=== PATIENT | female | born 1975 | race Caucasian/White ===

== ENCOUNTER 2018-05-18 06:21 | Day surgery (SDC) | END 2018-05-18 11:00 | disposition home or self-care (01) ==

== ENCOUNTER 2018-12-27 16:42 | Inpatient (IN) | payer OTHER ==
[~2018-12-27] VITALS: Ht 147.3 cm; Wt 59.0 kg
[2018-12-27 17:12] VITALS: BP 127/59; PULSE 82; RESP 18
[2018-12-27 17:14] VITALS: Ht 147.3 cm; Wt 59.0 kg
[2018-12-27] MEDS ORDERED: NACL 0.9% 3 ML SYG IV SCH (17:30)
[2018-12-27] MEDS ORDERED: ACETAMINOPHEN 325 MG TAB PO PRN (17:30)
[2018-12-27] MEDS ORDERED: morphine 2 MG INJ IV PRN (17:30)
[2018-12-27] MEDS ORDERED: HYDROCODONE/APAP (5/325) TAB PO PRN (17:30)
[2018-12-27] MEDS ORDERED: ONDANSETRON 4 MG INJ IV PRN (17:30)
[2018-12-27] MEDS: SOD CHLORIDE 0.9% 1,000 ML IV SCH (18:08)
--- NOTE | 2018-12-27 18:46 | HP ---
Date/Time of Note Date/Time of Note DATE: 12/27/18 TIME: 18:46 Assessment/Plan VTE Prophylaxis Pharmacological prophylaxis: other Assessment/Plan Hospital Course Patient is a female with no significant past medical history who presents to [facility] as a transfer from outside facility. Patient went to outside facility ED after experiencing what she thought was hemorrhoidal bleeding this morning. Patient states that for the past 7 months she has been spent experiencing on and off rectal bleeding that came and went and was sometimes a little bit and sometimes a lot. Patient states that she went to the ED today as she began to notice that she has been losing weight over the past few months approximately 30 pounds in the past 6 months, and that the bleeding was fairly heavy this morning, approximately a quarter of a cup that has since ceased. Currently patient has no complaint of rectal bleeding. Patient states that she has very mild pain in the right lower quadrant other than that the only real pain she experiences is when she tries to defecate. Patient denies any chest pain, shortness of breath, nausea, vomiting, headache, neck pain, leg pain. Objective Physical exam General: Patient is laying in bed and answers questions appropriately Mentation: Patient is alert and oriented 4, Head: Normocephalic atraumatic Eyes: EOMI, pupils reactive to light Neck: Supple, nontender, midline Respiratory: Clear to auscultation bilaterally Cardiovascular: regular rate, no obvious murmurs Gastrointestinal: Very mild right lower quadrant tenderness to palpation, bowel sounds heard. Neurological: Moves all extremities spontaneously Skin: No new skin lesions Assessment and plan Mass involving the rectum extending from the lower rectum inferiorly to the rectosigmoid junction with mesorectal, inferior mesenteric artery chain, and necrotic internal iliac chain lymphadenopathy -Per CT read at transferring facility this is most concerning for rectal neoplasm with metastatic lymphadenopathy -Patient also on CT has enhancing lesions and masses throughout the liver which is also concerning for metastatic disease -No CT done of the chest however do not want to give the patient a double dose of contrast today, will order CT chest with contrast tomorrow or the day after or per oncology recognitions -Oncologist, Dr. Hernandez consulted Rectal bleed -Secondary to above mass and likely metastatic cancer -GI on board -Currently not bleeding however patient did have a mild drop from the transferring facility, will obtain hemoglobin hematocrit every 6 hours and transfuse if below 7.5 as this is categorized as active bleed, although very mild -IV fluid -Clears for now Acute blood loss anemia -Secondary to above rectal bleed and likely mass -Transfuse if below 7.5 for active bleed 30 pound weight loss -Likely secondary to above mass, oncology recommendations appreciated Disposition -Continue to monitor hemoglobin hematocrit every 6 hours, transfuse as needed, awaiting recommendations from GI and oncology. Result Diagram: 12/27/18 1757 12/27/18 1757 Results 24hrs Laboratory Tests Test 12/27/18 17:57 White Blood Count 8.0 Red Blood Count 3.88 L Hemoglobin 8.3 L Hematocrit 27.6 L Mean Corpuscular Volume 71.1 L Mean Corpuscular Hemoglobin 21.4 L Mean Corpuscular Hemoglobin Concent 30.1 L Red Cell Distribution Width 19.8 H Platelet Count 449 H Mean Platelet Volume 8.8 Immature Granulocytes % 0.400 Neutrophils % 72.3 Lymphocytes % 20.8 Monocytes % 5.2 Eosinophils % 0.9 Basophils % 0.4 Nucleated Red Blood Cells % 0.0 Immature Granulocytes # 0.030 Neutrophils # 5.8 Lymphocytes # 1.7 Monocytes # 0.4 Eosinophils # 0.1 Basophils # 0.0 Nucleated Red Blood Cells # 0.0 Sodium Level 140 Potassium Level 4.1 Chloride Level 109 Carbon Dioxide Level 22 Anion Gap 9 Blood Urea Nitrogen 6 L Creatinine 0.50 Est Glomerular Filtrat Rate mL/min > 60 Glucose Level 80 Calcium Level 8.8 Magnesium Level 1.9 Total Bilirubin 0.6 Direct Bilirubin 0.00 Indirect Bilirubin 0.6 Aspartate Amino Transf (AST/SGOT) 64 H Alanine Aminotransferase (ALT/SGPT) 38 Alkaline Phosphatase 347 H Total Protein 6.7 Albumin 3.6 Globulin 3.10 Albumin/Globulin Ratio 1.16 HPI/ROS Admit Date/Time Admit Date/Time Dec 27, 2018 at 16:42 PMH/Family/Social Past Medical History Medications Current Medications Sodium Chloride 1,000 ml @ 50 mls/hr Q20H IV Last administered on 12/27/18at 18:08; Admin Dose 50 MLS/HR; Start 12/27/18 at 17:26 IV Flush (NS 3 ml) 3 ml PER PROTOCOL IV ; Start 12/27/18 at 17:30 Ondansetron HCl (Zofran Inj) 4 mg Q6H PRN IV NAUSEA/VOMITING; Start 12/27/18 at 17:30 Acetaminophen (Tylenol Tab) 650 mg Q6H PRN PO .PAIN 1-3 OR TEMP; Start 12/27/18 at 17:30 Acetaminophen/ Hydrocodone Bitart ([place] (5/325)) 1 tab Q6H PRN PO .PAIN 4-6; Start 12/27/18 at 17:30 Morphine Sulfate (morphine) 2 mg Q4H PRN IV .PAIN 7-10; Start 12/27/18 at 17:30 Pantoprazole (Protonix Iv) 40 mg DAILY@06 IV ; Start 12/28/18 at 06:00 Coded Allergies: No Known Allergy (Unverified , 05/18/18) Social History Smoking Status: Never smoker Exam/Review of Systems Vital Signs Vitals Vital Signs Date Temp Pulse Resp B/P (MAP) Pulse Ox O2 O2 Flow FiO2 Time Delivery Rate 12/27/18 98.1 82 18 127/59 100 Room Air 17:12 (81) ALIVIA MARIANO Dec 27, 2018 18:46
[2018-12-27 19:55] VITALS: BP 122/61; PULSE 90; RESP 18
[2018-12-27 20:14] VITALS: PULSE 89
[2018-12-28] VITALS (12 sets, daily range): BP systolic 111–133; BP diastolic 55–61; PULSE 71–82; RESP 16–18
[2018-12-28] MEDS: PANTOPRAZOLE 40 MG INJ IV SCH (06:09)
--- NOTE | 2018-12-28 12:16 | CONS ---
Assessment/Plan Assessment/Plan Hospital Course (Demo Recall) Summary Assessment and Plan: Assessment: Rectal bleeding Unintentional weight loss-30 pounds over the past [address] rectal mass concerning for neoplasm with hepatic lesions concerning for metastatic disease and lymphadenopathy Plan: sigmoidoscopy today Endoscopy - risks/benefits/alternatives/indications of procedure discussed with patient who states understanding and gives informed consent to proceed. Patient seen in collaboration with Dr. Johnson CC: RODRIGO JOHNSON MD ; Consultation Date/Type/Reason Admit Date/Time Dec 27, 2018 at 16:42 Date/Time of Note DATE: 12/28/18 TIME: 12:12 Hx of Present Illness This is a 43-year-old female with no significant past medical history who resented to [facility] with complaints of lower abdominal pain and rectal bleeding. Patient states this is been going off and on for the past 7 months no further work-up was completed as she thought this was secondary to hemorrhoids. Of note she did states she had unintentional weight loss about 30 pounds in the past 6 months. At that hospital CAT scan was obtained showing mass in the rectum extending to the rectum and sigmoid junction concern for prostatic lymphadenopathy and enhancing lesions/masses throughout the liver also concerning for metastatic disease. GI has been consulted for endoscopic evaluation. Discussed with patient plan for sigmoidoscopy to obtain tissue sample for confirmative diagnosis. Reviewed risk/benefits of procedure patient verbalized understanding and is agreeable. Review of Systems: A 12 system, review was conducted and is negative except as noted in the HPI or here. Past Medical History Home Meds No Active Prescriptions or Reported Meds Medications Current Medications Sodium Chloride 1,000 ml @ 50 mls/hr Q20H IV Last administered on 12/27/18at 18:08; Admin Dose 50 MLS/HR; Start 12/27/18 at 17:26 IV Flush (NS 3 ml) 3 ml PER PROTOCOL IV ; Start 12/27/18 at 17:30 Ondansetron HCl (Zofran Inj) 4 mg Q6H PRN IV NAUSEA/VOMITING; Start 12/27/18 at 17:30 Acetaminophen (Tylenol Tab) 650 mg Q6H PRN PO .PAIN 1-3 OR TEMP; Start 12/27/18 at 17:30 Acetaminophen/ Hydrocodone Bitart ([place] (5/325)) 1 tab Q6H PRN PO .PAIN 4-6; Start 12/27/18 at 17:30 Morphine Sulfate (morphine) 2 mg Q4H PRN IV .PAIN 7-10; Start 12/27/18 at 17:30 Pantoprazole (Protonix Iv) 40 mg DAILY@06 IV Last administered on 12/28/18at 06:09; Admin Dose 40 MG; Start 12/28/18 at 06:00 Allergies: Coded Allergies: No Known Allergy (Unverified , 05/18/18) Social History Smoking Status: Never smoker Exam/Review of Systems Exam Vitals Vital Signs Date Temp Pulse Resp B/P (MAP) Pulse Ox O2 O2 Flow FiO2 Time Delivery Rate 12/28/18 98.7 79 17 120/58 98 Room Air 11:16 (78) Intake and Output 12/27/18 12/27/18 12/28/18 1414:59 22:59 06:59 IntakeIntake Total 650 ml BalanceBalance 650 ml Exam PHYSICAL EXAMINATION: GENERAL: Well developed, well nourished, alert & oriented x 3, in no acute distress SKIN: No lesions. HEAD: Normocephalic, atraumatic, no tenderness. EYES: Pupils equal reactive to light and accommodation, no discharge. EARS/NOSE AND THROAT: Ears normal, nose normal, oropharynx normal. NECK: Supple, no masses. CHEST: Inspection within normal limits. CARDIOVASCULAR: Heart: Regular rate and rhythm RESPIRATORY: Lungs clear to auscultation GASTROINTESTINAL AND LIVER: Abdomen: Soft, lower abd tenderness, non-distended, no hernias, no masses, no organomegaly, no ascites, no guarding, no rebound tenderness, normoactive bowel sounds. Rectal: Deferred. EXTREMITIES: No cyanosis, clubbing or edema. Results Result Diagram: 12/28/18 1149 12/28/18 0706 Results 24hrs Laboratory Tests Test 12/27/18 17:57 12/28/18 00:22 12/28/18 07:06 12/28/18 11:49 White Blood Count 8.0 7.4 Red Blood Count 3.88 L 4.36 Hemoglobin 8.3 L 7.4 L 9.5 #L 9.0 L Hematocrit 27.6 L 24.9 L 31.7 #L 29.6 L Mean Corpuscular Volume 71.1 L 72.7 L Mean Corpuscular 21.4 L 21.8 L Hemoglobin Mean Corpuscular 30.1 L 30.0 L Hemoglobin Concent Red Cell Distribution 19.8 H 20.7 H Width Platelet Count 449 H 410 Mean Platelet Volume 8.8 8.9 Immature Granulocytes % 0.400 0.400 Neutrophils % 72.3 69.0 Lymphocytes % 20.8 22.1 Monocytes % 5.2 5.7 Eosinophils % 0.9 2.4 Basophils % 0.4 0.4 Nucleated Red Blood 0.0 0.0 Cells % Immature Granulocytes # 0.030 0.030 Neutrophils # 5.8 5.1 Lymphocytes # 1.7 1.6 Monocytes # 0.4 0.4 Eosinophils # 0.1 0.2 Basophils # 0.0 0.0 Nucleated Red Blood 0.0 0.0 Cells # Sodium Level 140 140 Potassium Level 4.1 3.9 Chloride Level 109 109 Carbon Dioxide Level 22 24 Anion Gap 9 7 Blood Urea Nitrogen 6 L 8 Creatinine 0.50 0.52 Est Glomerular Filtrat > 60 > 60 Rate mL/min Glucose Level 80 81 Calcium Level 8.8 8.7 Magnesium Level 1.9 1.9 Total Bilirubin 0.6 0.8 Direct Bilirubin 0.00 0.00 Indirect Bilirubin 0.6 0.8 Aspartate Amino 64 H 67 H Transf (AST/SGOT) Alanine 38 30 Aminotransferase (ALT/SG PT) Alkaline Phosphatase 347 H 302 H Total Protein 6.7 6.7 Albumin 3.6 3.3 Globulin 3.10 3.40 H Albumin/Globulin Ratio 1.16 0.97 Prothrombin Time 13.9 Prothrombin Time Ratio 1.1 INR International 1.06 Normalized Ratio Activated 30.9 Partial Thromboplast Time Thrombin Time 16.4 Hemoglobin A1c 5.6 Triglycerides Level 101 Cholesterol Level 193 LDL Cholesterol, 127 Calculated HDL Cholesterol 46 Cholesterol/HDL Ratio 4.1 Thyroid Stimulating 2.870 Hormone (TSH) Medications Medication Current Medications Sodium Chloride 1,000 ml @ 50 mls/hr Q20H IV Last administered on 12/27/18at 18:08; Admin Dose 50 MLS/HR; Start 12/27/18 at 17:26 IV Flush (NS 3 ml) 3 ml PER PROTOCOL IV ; Start 12/27/18 at 17:30 Ondansetron HCl (Zofran Inj) 4 mg Q6H PRN IV NAUSEA/VOMITING; Start 12/27/18 at 17:30 Acetaminophen (Tylenol Tab) 650 mg Q6H PRN PO .PAIN 1-3 OR TEMP; Start 12/27/18 at 17:30 Acetaminophen/ Hydrocodone Bitart ([place] (5/325)) 1 tab Q6H PRN PO .PAIN 4-6; Start 12/27/18 at 17:30 Morphine Sulfate (morphine) 2 mg Q4H PRN IV .PAIN 7-10; Start 12/27/18 at 17:30 Pantoprazole (Protonix Iv) 40 mg DAILY@06 IV Last administered on 12/28/18at 06:09; Admin Dose 40 MG; Start 12/28/18 at 06:00 LAURIE CANADA Dec 28, 2018 12:16
[2018-12-28] MEDS ORDERED: MIDAZOLAM 1 MG/ML 2 ML INJ ONE ×2 (13:05→13:06)
[2018-12-28] MEDS ORDERED: FENTAnyl 50 MCG/ML VIAL ONE (13:05)
[2018-12-28] MEDS: SOD CHLORIDE 0.9% 1,000 ML IV SCH ×2 (13:26→20:35)
--- NOTE | 2018-12-28 14:30 | PN ---
Date/Time of Note Date/Time of Note DATE: 12/28/18 TIME: 14:28 Objective Vitals Vital Signs Date Temp Pulse Resp B/P (MAP) Pulse Ox O2 O2 Flow FiO2 Time Delivery Rate 12/28/18 75 12:00 12/28/18 98.7 17 120/58 98 Room Air 11:16 (78) Intake and Output 12/27/18 12/27/18 12/28/18 1515:00 23:00 07:00 IntakeIntake Total 650 ml BalanceBalance 650 ml Results Result Diagram: 12/28/18 1149 12/28/18 0706 Medications Medications Current Medications Sodium Chloride 1,000 ml @ 50 mls/hr Q20H IV Last administered on 12/27/18at 18:08; Admin Dose 50 MLS/HR; Start 12/27/18 at 17:26 IV Flush (NS 3 ml) 3 ml PER PROTOCOL IV ; Start 12/27/18 at 17:30 Ondansetron HCl (Zofran Inj) 4 mg Q6H PRN IV NAUSEA/VOMITING; Start 12/27/18 at 17:30 Acetaminophen (Tylenol Tab) 650 mg Q6H PRN PO .PAIN 1-3 OR TEMP; Start 12/27/18 at 17:30 Acetaminophen/ Hydrocodone Bitart ([place] (5/325)) 1 tab Q6H PRN PO .PAIN 4-6; Start 12/27/18 at 17:30 Morphine Sulfate (morphine) 2 mg Q4H PRN IV .PAIN 7-10; Start 12/27/18 at 17:30 Pantoprazole (Protonix Iv) 40 mg DAILY@06 IV Last administered on 12/28/18at 06:09; Admin Dose 40 MG; Start 12/28/18 at 06:00 VTE Prophylaxis Risk score (from Nsg)>0 risk: 3 SCD applied (from Nsg): Yes Lines/Catheters IV Catheter Type: Mi in Place: No Assessment/Plan Hospital Course Subjective No acute overnight events, patient not having rectal bleed however hemoglobin did drop, transfuse 1 unit Objective Physical exam General: Patient is laying in bed and answers questions appropriately Mentation: Patient is alert and oriented 4, Head: Normocephalic atraumatic Eyes: EOMI, pupils reactive to light Neck: Supple, nontender, midline Respiratory: Clear to auscultation bilaterally Cardiovascular: regular rate, no obvious murmurs Gastrointestinal: Very mild right lower quadrant tenderness to palpation, bowel sounds heard. Neurological: Moves all extremities spontaneously Skin: No new skin lesions Assessment and plan Mass involving the rectum extending from the lower rectum inferiorly to the rectosigmoid junction with mesorectal, inferior mesenteric artery chain, and necrotic internal iliac chain lymphadenopathy -Per CT read at transferring facility this is most concerning for rectal neoplasm with metastatic lymphadenopathy -Patient also on CT has enhancing lesions and masses throughout the liver which is also concerning for metastatic disease -No CT done of the chest however do not want to give the patient a double dose of contrast today, will order CT chest with contrast tomorrow or the day after or per oncology recognitions -Oncologist, Dr. Hernandez consulted -GI performed sigmoidoscopy and obtain biopsy, pending biopsy results -Awaiting callback from radiation oncologist, Dr. Arnold Rectal bleed -Secondary to above mass and likely metastatic cancer -GI on board -Currently not bleeding however patient did have a mild drop from the transferring facility, will obtain hemoglobin hematocrit every 6 hours and transfuse if below 7.5 as this is categorized as active bleed, although very mild -IV fluid -Clears for now Acute blood loss anemia -Secondary to above rectal bleed and likely mass -Transfuse if below 7.5 for active bleed 30 pound weight loss -Likely secondary to above mass, oncology recommendations appreciated Disposition -Continue to monitor hemoglobin hematocrit every 6 hours, transfuse as needed, awaiting recommendations from GI and oncology. Awaiting callback from radiation oncologist, awaiting path reports, possibly needing radiation before discharge if bleeding does not subside. ALIVIA MARIANO Dec 28, 2018 14:30
[2018-12-29] VITALS (13 sets, daily range): BP systolic 105–136; BP diastolic 58–66; PULSE 65–86; RESP 16–18
[2018-12-29] MEDS: PANTOPRAZOLE 40 MG INJ IV SCH (06:07)
--- NOTE | 2018-12-29 13:29 | PN ---
Date/Time of Note Date/Time of Note DATE: 12/29/18 TIME: 13:26 Objective Vitals Vital Signs Date Temp Pulse Resp B/P (MAP) Pulse Ox O2 O2 Flow FiO2 Time Delivery Rate 12/29/18 84 13:09 12/29/18 97.5 18 136/59 98 Room Air 11:40 (84) Intake and Output 12/28/18 12/28/18 12/29/18 1515:00 23:00 07:00 IntakeIntake Total 500 ml 1600 ml 480 ml BalanceBalance 500 ml 1600 ml 480 ml Results Result Diagram: 12/29/18 1210 12/29/18 0805 Medications Medications Current Medications IV Flush (NS 3 ml) 3 ml PER PROTOCOL IV ; Start 12/27/18 at 17:30 Ondansetron HCl (Zofran Inj) 4 mg Q6H PRN IV NAUSEA/VOMITING; Start 12/27/18 at 17:30 Acetaminophen (Tylenol Tab) 650 mg Q6H PRN PO .PAIN 1-3 OR TEMP; Start 12/27/18 at 17:30 Acetaminophen/ Hydrocodone Bitart ([place] (5/325)) 1 tab Q6H PRN PO .PAIN 4-6; Start 12/27/18 at 17:30 Morphine Sulfate (morphine) 2 mg Q4H PRN IV .PAIN 7-10; Start 12/27/18 at 17:30 Pantoprazole (Protonix Iv) 40 mg DAILY@06 IV Last administered on 12/29/18at 06:07; Admin Dose 40 MG; Start 12/28/18 at 06:00 VTE Prophylaxis Risk score (from Nsg)>0 risk: 3 SCD applied (from Ns): Yes Lines/Catheters IV Catheter Type: Mi in Place: No Assessment/Plan Hospital Course Subjective No acute overnight events, Objective Physical exam General: Patient is laying in bed and answers questions appropriately Mentation: Patient is alert and oriented 4, Head: Normocephalic atraumatic Eyes: EOMI, pupils reactive to light Neck: Supple, nontender, midline Respiratory: Clear to auscultation bilaterally Cardiovascular: regular rate, no obvious murmurs Gastrointestinal: Very mild right lower quadrant tenderness to palpation, bowel sounds heard. Neurological: Moves all extremities spontaneously Skin: No new skin lesions Assessment and plan Mass involving the rectum extending from the lower rectum inferiorly to the rectosigmoid junction with mesorectal, inferior mesenteric artery chain, and necrotic internal iliac chain lymphadenopathy -Per CT read at transferring facility this is most concerning for rectal neoplasm with metastatic lymphadenopathy -Patient also on CT has enhancing lesions and masses throughout the liver which is also concerning for metastatic disease -awaiting both oncology/rad-oncology recs for further staging (MRI vs further ct scans) -Oncologist, Dr. Hernandez consulted -GI performed sigmoidoscopy and obtained biopsy, pending biopsy results -Dr. Arnold, rad onc on board. Rectal bleed -Secondary to above mass and likely metastatic cancer -GI on board -Currently not bleeding however patient did have a mild drop from the transferring facility, will obtain hemoglobin hematocrit every 6 hours and transfuse if below 7.5 as this is categorized as active bleed, although very mild -IV fluid -Clears for now increase as tolerated Acute blood loss anemia -Secondary to above rectal bleed and likely mass -Transfuse if below 7.5 for active bleed 30 pound weight loss -Likely secondary to above mass, oncology recommendations appreciated Disposition -Continue to monitor hemoglobin hematocrit every 6 hours, transfuse as needed, awaiting recommendations from GI and oncology. ALIVIA MARIANO Dec 29, 2018 13:29
--- NOTE | 2018-12-29 13:36 | CONS ---
Assessment/Plan Assessment/Plan Hospital Course (Demo Recall) pleasant but unfortunate 43 yo with no PMH with BRBPR and weight loss, had CT scan showing rectal lesion and liver mets. 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 given extent of disease will administer either FOLFOX or XELOX concomitantly -we discussed in brief the chemotherapy schedule and side effects expected uncluding but not limited to nausea, vomiting, myelosupression, hair loss, neuropathy. once pathology is finalized will order chemo -KRAS and MSI testing -would recommend mediport Consultation Date/Type/Reason Admit Date/Time Dec 27, 2018 at 16:42 Date/Time of Note DATE: 12/29/18 TIME: 13:35 Hx of Present Illness 43 yo female with no significant past medical history who presented to [facility] as a transfer from outside facility. She went to ER after having rectal bleeding. Has had on and off rectal bleeding small amounts to at times large amounts. Also has been losing weight over the past few months approximately 30 pounds in the past 6 months. She had colonoscopy yesterday showing large exophytic malignant appearing mass 1-2 cm from anal verge and extending 6-7 cm Eyes: no complaints ENT: no complaints Respiratory: no complaints Cardiovascular: no complaints Gastrointestinal: pain, blood, constipation, decreased appetite Genitourinary: no complaints Musculoskeletal: no complaints Skin: no complaints Neurologic: no complaints Endocrine: no complaints Lymphatic: no complaints Past Medical History Home Meds No Active Prescriptions or Reported Meds Medications Current Medications IV Flush (NS 3 ml) 3 ml PER PROTOCOL IV ; Start 12/27/18 at 17:30 Ondansetron HCl (Zofran Inj) 4 mg Q6H PRN IV NAUSEA/VOMITING; Start 12/27/18 at 17:30 Acetaminophen (Tylenol Tab) 650 mg Q6H PRN PO .PAIN 1-3 OR TEMP; Start 12/27/18 at 17:30 Acetaminophen/ Hydrocodone Bitart ([place] (5/325)) 1 tab Q6H PRN PO .PAIN 4-6; Start 12/27/18 at 17:30 Morphine Sulfate (morphine) 2 mg Q4H PRN IV .PAIN 7-10; Start 12/27/18 at 17:30 Pantoprazole (Protonix Iv) 40 mg DAILY@06 IV Last administered on 12/29/18at 06:07; Admin Dose 40 MG; Start 12/28/18 at 06:00 Allergies: Coded Allergies: No Known Allergy (Unverified , 05/18/18) Social History Smoking Status: Never smoker Exam/Review of Systems Exam Vitals Vital Signs Date Temp Pulse Resp B/P (MAP) Pulse Ox O2 O2 Flow FiO2 Time Delivery Rate 12/29/18 84 13:09 12/29/18 97.5 18 136/59 98 Room Air 11:40 (84) Intake and Output 12/28/18 12/28/18 12/29/18 1515:00 23:00 07:00 IntakeIntake Total 500 ml 1600 ml 480 ml BalanceBalance 500 ml 1600 ml 480 ml Constitutional: alert Psych: no complaints, nl mood/affect Head: normocephalic, atraumatic Eyes: nl conjunctiva, EOMI, nl lids, nl sclera, PERRL Neck: supple, non-tender Gastrointestinal: soft Neurological: [employer] II-XII intact, nl mental status, nl speech, nl strength Results Result Diagram: 12/29/18 1210 12/29/18 0805 Results 24hrs Laboratory Tests Test 12/28/18 18:54 12/29/18 00:40 12/29/18 08:05 12/29/18 12:10 Hemoglobin 8.8 L 8.9 L 10.1 L 9.7 L Hematocrit 28.8 L 28.7 L 33.2 L 31.7 L White Blood Count 8.2 Red Blood Count 4.57 Mean Corpuscular Volume 72.6 L Mean Corpuscular 22.1 L Hemoglobin Mean Corpuscular 30.4 L Hemoglobin Concent Red Cell Distribution 20.0 H Width Platelet Count 437 H Mean Platelet Volume 9.0 Immature Granulocytes % 0.100 Neutrophils % 67.7 Lymphocytes % 25.1 Monocytes % 4.5 Eosinophils % 2.2 Basophils % 0.4 Nucleated Red Blood 0.0 Cells % Immature Granulocytes # 0.010 Neutrophils # 5.6 Lymphocytes # 2.1 Monocytes # 0.4 Eosinophils # 0.2 Basophils # 0.0 Nucleated Red Blood 0.0 Cells # Sodium Level 139 Potassium Level 3.7 Chloride Level 106 Carbon Dioxide Level 27 Anion Gap 6 Blood Urea Nitrogen 6 L Creatinine 0.50 Est Glomerular Filtrat > 60 Rate mL/min Glucose Level 100 Calcium Level 8.9 Phosphorus Level 4.3 Magnesium Level 1.8 Medications Medication Current Medications IV Flush (NS 3 ml) 3 ml PER PROTOCOL IV ; Start 12/27/18 at 17:30 Ondansetron HCl (Zofran Inj) 4 mg Q6H PRN IV NAUSEA/VOMITING; Start 12/27/18 at 17:30 Acetaminophen (Tylenol Tab) 650 mg Q6H PRN PO .PAIN 1-3 OR TEMP; Start 12/27/18 at 17:30 Acetaminophen/ Hydrocodone Bitart ([place] (5/325)) 1 tab Q6H PRN PO .PAIN 4-6; Start 12/27/18 at 17:30 Morphine Sulfate (morphine) 2 mg Q4H PRN IV .PAIN 7-10; Start 12/27/18 at 17:30 Pantoprazole (Protonix Iv) 40 mg DAILY@06 IV Last administered on 12/29/18at 06:07; Admin Dose 40 MG; Start 12/28/18 at 06:00 KAMALJIT HOLLINS Dec 29, 2018 13:36
--- NOTE | 2018-12-29 15:14 | PN ---
Date/Time of Note Date/Time of Note DATE: 12/29/18 TIME: 14:56 Assessment/Plan VTE Prophylaxis Risk score (from Ns)>0 risk: 3 SCD applied (from Ns): Yes Pharmacological prophylaxis: NA/contraindicated Pharm contraindication: bleeding Lines/Catheters IV Catheter Type (from [facility]): Urinary Cath still in place: No Assessment/Plan Assessment/Plan Assessment: Rectal bleeding Status post sigmoidoscopy 12/28/2018 -Large rectal mass -biopsied -moderately differentiated adenocarcinoma Unintentional weight loss-30 pounds over the past [address] rectal mass concerning for neoplasm with hepatic lesions concerning for metastatic disease and lymphadenopathy Plan: Oncology consult for possible radiation Full colonoscopy is recommended in the future With no further recommendations GI will sign off Patient seen in collaboration with Dr. Johnson Subjective: Patient is feeling well today. She is complaining of suprapubic pain. Denies nausea or vomiting. She is tolerating regular diet well. Discussed results of sigmoidoscopy and biopsy. Recommend oncology consult. With no further recommendations GI will sign off and will be available to reconsult upon request. Exam PHYSICAL EXAMINATION: GENERAL: Well developed, well nourished, alert & oriented x 3, in no acute distress SKIN: No lesions. HEAD: Normocephalic, atraumatic, no tenderness. EYES: Pupils equal reactive to light and accommodation, no discharge. EARS/NOSE AND THROAT: Ears normal, nose normal, oropharynx normal. NECK: Supple, no masses. CHEST: Inspection within normal limits. CARDIOVASCULAR: Heart: Regular rate and rhythm RESPIRATORY: Lungs clear to auscultation GASTROINTESTINAL AND LIVER: Abdomen: Soft, lower abd tenderness, non-distended, no hernias, no masses, no organomegaly, no ascites, no guarding, no rebound tenderness, normoactive bowel sounds. Rectal: Deferred. EXTREMITIES: No cyanosis, clubbing or edema. Result Diagram: 12/29/18 1210 12/29/18 0805 Results 24hrs Laboratory Tests Test 12/28/18 18:54 12/29/18 00:40 12/29/18 08:03 12/29/18 08:05 Hemoglobin 8.8 L 8.9 L 10.1 L Hematocrit 28.8 L 28.7 L 33.2 L Iron Level 23 L Total Iron Binding 396 Capacity Percent Iron Saturation 6 L Ferritin 20.6 Carcinoembryonic Antigen 176.0 H White Blood Count 8.2 Red Blood Count 4.57 Mean Corpuscular Volume 72.6 L Mean Corpuscular 22.1 L Hemoglobin Mean Corpuscular 30.4 L Hemoglobin Concent Red Cell Distribution 20.0 H Width Platelet Count 437 H Mean Platelet Volume 9.0 Immature Granulocytes % 0.100 Neutrophils % 67.7 Lymphocytes % 25.1 Monocytes % 4.5 Eosinophils % 2.2 Basophils % 0.4 Nucleated Red Blood 0.0 Cells % Immature Granulocytes # 0.010 Neutrophils # 5.6 Lymphocytes # 2.1 Monocytes # 0.4 Eosinophils # 0.2 Basophils # 0.0 Nucleated Red Blood 0.0 Cells # Sodium Level 139 Potassium Level 3.7 Chloride Level 106 Carbon Dioxide Level 27 Anion Gap 6 Blood Urea Nitrogen 6 L Creatinine 0.50 Est Glomerular Filtrat > 60 Rate mL/min Glucose Level 100 Calcium Level 8.9 Phosphorus Level 4.3 Magnesium Level 1.8 Test 12/29/18 12:10 Hemoglobin 9.7 L Hematocrit 31.7 L CC: RODRIGO JOHNSON MD ; Exam/Review of Systems Exam Vitals Vital Signs Date Temp Pulse Resp B/P (MAP) Pulse Ox O2 O2 Flow FiO2 Time Delivery Rate 12/29/18 84 13:09 12/29/18 97.5 18 136/59 98 Room Air 11:40 (84) Intake and Output 12/28/18 12/28/18 12/29/18 1515:00 23:00 07:00 IntakeIntake Total 500 ml 1600 ml 480 ml BalanceBalance 500 ml 1600 ml 480 ml Results Results 24hrs Laboratory Tests Test 12/28/18 18:54 12/29/18 00:40 12/29/18 08:03 12/29/18 08:05 Hemoglobin 8.8 L 8.9 L 10.1 L Hematocrit 28.8 L 28.7 L 33.2 L Iron Level 23 L Total Iron Binding 396 Capacity Percent Iron Saturation 6 L Ferritin 20.6 Carcinoembryonic Antigen 176.0 H White Blood Count 8.2 Red Blood Count 4.57 Mean Corpuscular Volume 72.6 L Mean Corpuscular 22.1 L Hemoglobin Mean Corpuscular 30.4 L Hemoglobin Concent Red Cell Distribution 20.0 H Width Platelet Count 437 H Mean Platelet Volume 9.0 Immature Granulocytes % 0.100 Neutrophils % 67.7 Lymphocytes % 25.1 Monocytes % 4.5 Eosinophils % 2.2 Basophils % 0.4 Nucleated Red Blood 0.0 Cells % Immature Granulocytes # 0.010 Neutrophils # 5.6 Lymphocytes # 2.1 Monocytes # 0.4 Eosinophils # 0.2 Basophils # 0.0 Nucleated Red Blood 0.0 Cells # Sodium Level 139 Potassium Level 3.7 Chloride Level 106 Carbon Dioxide Level 27 Anion Gap 6 Blood Urea Nitrogen 6 L Creatinine 0.50 Est Glomerular Filtrat > 60 Rate mL/min Glucose Level 100 Calcium Level 8.9 Phosphorus Level 4.3 Magnesium Level 1.8 Test 12/29/18 12:10 Hemoglobin 9.7 L Hematocrit 31.7 L Medications Medication Current Medications IV Flush (NS 3 ml) 3 ml PER PROTOCOL IV ; Start 12/27/18 at 17:30 Ondansetron HCl (Zofran Inj) 4 mg Q6H PRN IV NAUSEA/VOMITING; Start 12/27/18 at 17:30 Acetaminophen (Tylenol Tab) 650 mg Q6H PRN PO .PAIN 1-3 OR TEMP; Start 12/27/18 at 17:30 Acetaminophen/ Hydrocodone Bitart ([place] (5/325)) 1 tab Q6H PRN PO .PAIN 4-6; Start 12/27/18 at 17:30 Morphine Sulfate (morphine) 2 mg Q4H PRN IV .PAIN 7-10; Start 12/27/18 at 17:30 Pantoprazole (Protonix Iv) 40 mg DAILY@06 IV Last administered on 12/29/18at 06:07; Admin Dose 40 MG; Start 12/28/18 at 06:00 ANABEL CHAND NP Dec 29, 2018 15:13
[2018-12-29] MEDS ORDERED: SOD CHLORIDE 0.9% 100 ML ONE (20:56)
[2018-12-29] MEDS ORDERED: IOHEXOL 300MG/ML 150 ML BTL ONE (20:56)
[2018-12-30] VITALS (11 sets, daily range): BP systolic 95–121; BP diastolic 61–69; PULSE 67–83; RESP 18–19
[2018-12-30] MEDS: PANTOPRAZOLE 40 MG INJ IV SCH (05:51)
--- NOTE | 2018-12-30 15:24 | PN ---
Date/Time of Note Date/Time of Note DATE: 12/30/18 TIME: 15:22 Objective Vitals Vital Signs Date Temp Pulse Resp B/P (MAP) Pulse Ox O2 O2 Flow FiO2 Time Delivery Rate 12/30/18 98.1 18 107/69 100 Room Air 11:44 (82) 12/30/18 67 08:37 Intake and Output 12/29/18 12/29/18 12/30/18 1515:00 23:00 07:00 IntakeIntake Total 350 ml BalanceBalance 350 ml Results Result Diagram: 12/30/18 0742 12/30/18 0742 Medications Medications Current Medications IV Flush (NS 3 ml) 3 ml PER PROTOCOL IV ; Start 12/27/18 at 17:30 Ondansetron HCl (Zofran Inj) 4 mg Q6H PRN IV NAUSEA/VOMITING; Start 12/27/18 at 17:30 Acetaminophen (Tylenol Tab) 650 mg Q6H PRN PO .PAIN 1-3 OR TEMP; Start 12/27/18 at 17:30 Acetaminophen/ Hydrocodone Bitart ([place] (5/325)) 1 tab Q6H PRN PO .PAIN 4-6; Start 12/27/18 at 17:30 Morphine Sulfate (morphine) 2 mg Q4H PRN IV .PAIN 7-10; Start 12/27/18 at 17:30 Pantoprazole (Protonix Iv) 40 mg DAILY@06 IV Last administered on 12/30/18at 05:51; Admin Dose 40 MG; Start 12/28/18 at 06:00 VTE Prophylaxis Risk score (from Ns)>0 risk: 3 SCD applied (from Nsg): Yes Lines/Catheters IV Catheter Type: Mi in Place: No Assessment/Plan Hospital Course Subjective No acute overnight events, Objective Physical exam General: Patient is laying in bed and answers questions appropriately Mentation: Patient is alert and oriented 4, Head: Normocephalic atraumatic Eyes: EOMI, pupils reactive to light Neck: Supple, nontender, midline Respiratory: Clear to auscultation bilaterally Cardiovascular: regular rate, no obvious murmurs Gastrointestinal: Very mild right lower quadrant tenderness to palpation, bowel sounds heard. 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 Hernandez consulted -GI performed sigmoidoscopy and obtained biopsy, pending biopsy results -Dr. Arnold, rad onc on board. Plan on radiation therapy in house Rectal bleed, stabilized -Secondary to above mass and likely metastatic cancer -GI on board -Currently not bleeding -IV fluid as needed -Clears for now increase as tolerated Acute blood loss anemia -Secondary to above rectal bleed and likely mass -Transfuse if below 7.5 for active bleed 30 pound weight loss -Likely secondary to above mass, oncology recommendations appreciated Disposition -We will order Mediport to be inserted soon, awaiting further differentiation with immunohistochemistry, expect Tuesday results to be more conclusive where oncology can further plan chemotherapy with radiation before patient is discharged. ALIVIA MARIANO Dec 30, 2018 15:24
[2018-12-31] VITALS (9 sets, daily range): BP systolic 108–116; BP diastolic 59–71; PULSE 63–90; RESP 17–19
[2018-12-31] MEDS: PANTOPRAZOLE (EC) 40 MG TAB PO SCH (05:41)
--- NOTE | 2018-12-31 08:05 | CONS ---
Assessment/Plan Assessment/Plan Hospital Course (Demo Recall) pleasant but unfortunate 43 yo with no PMH with BRBPR and weight loss, had CT scan showing rectal lesion and liver mets. Colonoscopy shows large rectal mass -path c/w adeno ca of rectum -check CEA -CT chest: 9 mm nodule in the anterior right upper lobe, which may reflect metastatic disease. Calcified granuloma in the posterior right lower lobe. Multiple large hepatic metastasis. -Rad Onc has seen pt, Dr Juarez plans on starting XRT in hospital. given extent of disease will administer either FOLFOX or XELOX concomitantly -we discussed in brief the chemotherapy schedule and side effects expected uncluding but not limited to nausea, vomiting, myelosuppression, hair loss, neuropathy. once pathology is finalized will order chemo -MRI abdo to better evaluate liver -KRAS and MSI testing -would recommend mediport #anemia iron def anemia start ferrlecit 125 mg daily x 3 dose Consultation Date/Type/Reason Admit Date/Time Dec 27, 2018 at 16:42 Initial Consult Date Date/Time of Note DATE: 12/31/18 TIME: 08:04 Exam/Review of Systems Exam Vitals Vital Signs Date Temp Pulse Resp B/P (MAP) Pulse Ox O2 O2 Flow FiO2 Time Delivery Rate 12/31/18 98.3 70 17 110/62 99 07:09 (78) 12/31/18 Room Air 04:00 Intake and Output 12/30/18 12/30/18 12/31/18 1414:59 22:59 06:59 IntakeIntake Total 1200 ml 400 ml BalanceBalance 1200 ml 400 ml Constitutional: alert, oriented, well developed Results Result Diagram: 12/31/18 0552 12/31/18 0552 Results 24hrs Laboratory Tests Test 12/30/18 18:18 12/31/18 05:52 Hemoglobin 10.2 L 9.0 L Hematocrit 33.4 L 29.1 L White Blood Count 7.2 Red Blood Count 4.06 L Mean Corpuscular Volume 71.7 L Mean Corpuscular Hemoglobin 22.2 L Mean Corpuscular Hemoglobin Concent 30.9 L Red Cell Distribution Width 19.9 H Platelet Count 363 Mean Platelet Volume 9.5 Immature Granulocytes % 0.100 Neutrophils % 64.7 Lymphocytes % 24.2 Monocytes % 6.4 Eosinophils % 4.2 Basophils % 0.4 Nucleated Red Blood Cells % 0.0 Immature Granulocytes # 0.010 Neutrophils # 4.6 Lymphocytes # 1.7 Monocytes # 0.5 Eosinophils # 0.3 Basophils # 0.0 Nucleated Red Blood Cells # 0.0 Sodium Level 139 Potassium Level 3.7 Chloride Level 106 Carbon Dioxide Level 26 Anion Gap 7 Blood Urea Nitrogen 6 L Creatinine 0.46 Est Glomerular Filtrat Rate mL/min > 60 Glucose Level 100 Calcium Level 8.9 Phosphorus Level 4.8 Magnesium Level 2.1 Medications Medication Current Medications IV Flush (NS 3 ml) 3 ml PER PROTOCOL IV ; Start 12/27/18 at 17:30 Ondansetron HCl (Zofran Inj) 4 mg Q6H PRN IV NAUSEA/VOMITING; Start 12/27/18 at 17:30 Acetaminophen (Tylenol Tab) 650 mg Q6H PRN PO .PAIN 1-3 OR TEMP; Start 12/27/18 at 17:30 Acetaminophen/ Hydrocodone Bitart ([place] (5/325)) 1 tab Q6H PRN PO .PAIN 4-6; Start 12/27/18 at 17:30 Morphine Sulfate (morphine) 2 mg Q4H PRN IV .PAIN 7-10; Start 12/27/18 at 17:30 Pantoprazole (Protonix Tab) 40 mg DAILY@06 PO Last administered on 12/31/18at 05:41; Admin Dose 40 MG; Start 12/31/18 at 06:00 KAMALJIT HOLLINS Dec 31, 2018 08:05
--- NOTE | 2018-12-31 12:42 | PN ---
Date/Time of Note Date/Time of Note DATE: 12/31/18 TIME: 12:41 Objective Vitals Vital Signs Date Temp Pulse Resp B/P (MAP) Pulse Ox O2 O2 Flow FiO2 Time Delivery Rate 12/31/18 98.4 84 18 108/71 100 11:08 (83) 12/31/18 Room Air 04:00 Intake and Output 12/30/18 12/30/18 12/31/18 1515:00 23:00 07:00 IntakeIntake Total 1200 ml 400 ml BalanceBalance 1200 ml 400 ml Results Result Diagram: 12/31/18 0552 12/31/18 0552 Medications Medications Current Medications IV Flush (NS 3 ml) 3 ml PER PROTOCOL IV ; Start 12/27/18 at 17:30 Ondansetron HCl (Zofran Inj) 4 mg Q6H PRN IV NAUSEA/VOMITING; Start 12/27/18 at 17:30 Acetaminophen (Tylenol Tab) 650 mg Q6H PRN PO .PAIN 1-3 OR TEMP; Start 12/27/18 at 17:30 Acetaminophen/ Hydrocodone Bitart ([place] (5/325)) 1 tab Q6H PRN PO .PAIN 4-6; Start 12/27/18 at 17:30 Morphine Sulfate (morphine) 2 mg Q4H PRN IV .PAIN 7-10; Start 12/27/18 at 17:30 Pantoprazole (Protonix Tab) 40 mg DAILY@06 PO Last administered on 12/31/18at 05:41; Admin Dose 40 MG; Start 12/31/18 at 06:00 Ferric Sodium Gluconate Complex 125 mg/Sodium Chloride 100 ml @ 100 mls/hr DAILY@1300 IVPB ; Start 12/31/18 at 13:00; Stop 01/02/19 at 13:59 VTE Prophylaxis Risk score (from Nsg)>0 risk: 3 SCD applied (from Nsg): Yes Lines/Catheters IV Catheter Type: Mi in Place: No Assessment/Plan Hospital Course Subjective No acute overnight events, continues to have small amount of rectal bleed with bowel movements Objective Physical exam General: Patient is laying in bed and answers questions appropriately Mentation: Patient is alert and oriented 4, Head: Normocephalic atraumatic Eyes: EOMI, pupils reactive to light Neck: Supple, nontender, midline Respiratory: Clear to auscultation bilaterally Cardiovascular: regular rate, no obvious murmurs Gastrointestinal: Very mild right lower quadrant tenderness to palpation, bowel sounds heard. 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 Hernandez consulted -GI performed sigmoidoscopy and obtained biopsy, pending biopsy results, initial says adenocarcinoma however this is not fully differentiated. -Dr. Arnold, rad onc on board. Plan on radiation therapy in house Rectal bleed, stabilized -Secondary to above mass and likely metastatic cancer -GI on board -Still has some bloody bowel movements however hemoglobin has been remain relatively stable, continue to monitor closely. -IV fluid as needed -Regular diet Acute blood loss anemia -Secondary to above rectal bleed and likely mass -Transfuse if below 7.5 for active bleed 30 pound weight loss -Likely secondary to above mass, oncology recommendations appreciated Disposition -We will order Mediport to be inserted soon, awaiting further differentiation with immunohistochemistry, expect Tuesday results to be more conclusive (immunohistochem stains) where oncology can further plan chemotherapy with radi ation before patient is discharged. ALIVIA MARIANO Dec 31, 2018 12:42
[2018-12-31] MEDS: SOD FERRIC GLUC COMPLX 125 MG in SOD CHLORIDE 0.9% 100 ML IVPB SCH (14:45)
[2019-01-01 02:42] VITALS: BP 110/58; PULSE 60; RESP 18
[2019-01-01] MEDS: PANTOPRAZOLE (EC) 40 MG TAB PO SCH (05:26)
[2019-01-01 07:20] VITALS: BP 113/57; PULSE 78; RESP 19
[2019-01-01] MEDS ORDERED: CEFAZOLIN 1 GM/50 ML (PMX) 50 ML IVPB ONE ×2 (08:30→11:18)
[2019-01-01] MEDS ORDERED: POLYMYXIN/BACITRACIN 1L IRRIG IRR ONE (08:30)
--- NOTE | 2019-01-01 09:42 | CONS ---
DATE OF ADMISSION: 12/27/2018 DATE OF CONSULTATION: 01/01/2019 DIAGNOSIS: Carcinoma of the rectum. HISTORY OF PRESENT ILLNESS: The patient is a 43-year-old female with no significant past medical his tory and no family history of colorectal cancer, who presented to medical attention, with a 7-month h istory of intermittent rectal bleeding, constipation, and a 30 pound weight loss. She has not been e xperiencing nausea, vomiting or appetite loss. She did note some mild right lower quadrant pain. Due to increased bleeding, she presented to [facility] further evaluation. A C T of the abdomen and pelvis on 12/27/2018, described multiple centrally hypoenhancing peripherally hy perenhancing lesions and masses throughout the liver with the largest located in the right hepatic lo be measuring at least 11 x 13 cm. 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 There was moderate left intrahepatic biliary ductal dilatation by that mass. Also not ed was a heterogeneously enhancing circumferential mass involving the rectum extending near the recto sigmoid junction with no evidence of bowel obstruction. Enlarged bilateral internal iliac chain and mesorectal lymph nodes were observed. This included a 19 mm right internal iliac lymph node with asia tral necrosis, a 7 mm mesorectal lymph node, and multiple prominent subcentimeter inferior mesenteric artery chain lymph nodes. On 12/28/2018 she underwent a colonoscopy which identified a large circum ferential exophytic mass 1 to 2 cm from the anal verge and extending approximately 6 to 7 cm. Biopsi es were taken and pathology consistent with a moderately differentiated adenocarcinoma. She denies any urinary changes. She has no dysuria, hematuria or incontinence. She denies urgency, frequency, weak flow or straining. She denies any vaginal symptoms such as discharge or bleeding. S he has no pulmonary or musculoskeletal complaints. PAST MEDICAL HISTORY: Unremarkable. PAST SURGICAL HISTORY: Noncontributory. ALLERGIES TO MEDICATIONS: None. HOME MEDICATIONS: None. SOCIAL HISTORY: She denies tobacco use. REVIEW OF SYSTEMS: GENERAL: Admits to fatigue. No fever, chills or sweats. ENT: Denies otalgia, dysphagia or hoarseness. NEUROLOGIC: No headache, seizure, syncope. Mild dizziness. No focal extremity weakness. No seizur e activity. RESPIRATORY: Denies shortness of breath, cough, hemoptysis, wheezing. CARDIOVASCULAR: No chest pain, palpitations, heart attacks or strokes. GI: As above. ENDOCRINE: No history of diabetes or thyroid disease. SKIN: No history of lupus, scleroderma or shingles. MUSCULOSKELETAL: No back, hip or rib pain or neck pain. PHYSICAL EXAMINATION: GENERAL: Well-appearing female in no distress. HEENT: Normocephalic, atraumatic. Sclerae icteric. NECK: No distinct palpable cervical, supraclavicular or axillary adenopathy. LUNGS: Clear without wheezes. ABDOMEN: Soft, nontender, without rebound, guarding, rigidity palpable masses, rebound or guarding. EXTREMITIES: No edema. RECTAL: Deferred. NEUROLOGIC: Awake, alert, oriented x3, no focal motor or sensory deficits. Toes are downgoing. 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 PLAN: The patient will be evaluated by medical oncology and I will need to review the case with them . Options could include upfront systemic therapy versus pelvic irradiation and concurrent chemothera py. I do believe that there is benefit to obtaining pelvic control and diminishing her bleeding. In fact, there may be a role, in the future, for surgical resection of the rectal mass. We did review the nature, rationale, risks and benefits of pelvic irradiation. Side effects were dis cussed and questions answered. This included but was not limited to discussion of potential for fati mag, skin reaction, cramping, diarrhea, proctitis or rectal bleeding, fecal incontinence, irritative voiding symptoms, dysuria, hematuria, incontinence, urethral strictures, bowel obstruction, bone nilsa ow suppression, pelvic insufficiency fractures and ovarian dysfunction. Questions were answered. Anat bahena has verbally consented to proceed with radiation treatment if indicated. I will likely be submitting for authorization of IMRT for the pelvis. I will be planning on deliveri ng a dose of between 4500 and 5000 cGy to that region, presumably with concurrent chemotherapy. Dictated By: ZEKE TORRES/JEFF Conf#: [id number] DID#: [id number] CC: ALIVIA MARIANO MD;*EndCC*
[2019-01-01] MEDS ORDERED: LIDOCAINE 1%/EPI (1:100,000) (MDV) 20 ML ONE (11:19)
[2019-01-01] MEDS ORDERED: HEPARIN 1000 UNITS/ML 10 ML INJ ONE (11:19)
[2019-01-01] MEDS ORDERED: FENTAnyl 50 MCG/ML VIAL ONE (11:19)
[2019-01-01] MEDS ORDERED: MIDAZOLAM 1 MG/ML 2 ML INJ ONE (11:19)
[2019-01-01 13:12] VITALS: BP 102/51; PULSE 85; RESP 16
[2019-01-01 13:58] VITALS: BP 110/57; PULSE 89; RESP 12
[2019-01-01] MEDS: SOD FERRIC GLUC COMPLX 125 MG in SOD CHLORIDE 0.9% 100 ML IVPB SCH (14:11)
--- NOTE | 2019-01-01 15:55 | PDOCDIS ---
Discharge Instructions DIAGNOSIS Discharge Diagnosis Colorectal adenocarcinoma with metastases to the liver CONDITION [id number] Patient Condition: Ncmig2s Fair HOME CARE INSTRUCTIONS: [id number] Diet Instructions: [id number] Regular ACTIVITY: [id number] Activity Restrictions: [id number] No Restrictions FOLLOW UP/APPOINTMENTS Follow-up Plan 1. For pain, take ibuprofen or acetaminophen as needed. 2. See Dr. Arnold as scheduled for radiation therapy. 3. See Dr. Archie Freire as scheduled for chemotherapy. (Office number: ) 4. For worsening rectal bleeding or pain uncontrolled by tylenol or ibuprofen; return to the emergency room. 1. Para el dolor, tome ibuprofeno o acetaminofeno segn sea necesario. 2. Angi al Dr. Arnold segn lo programado para la radioterapia. 3. Consulte a la Dra. Archie Freire segn lo programado para la quimioterapia. (Nmero de la oficina: ) 4. Para empeorar el sangrado rectal o el dolor no controlado por tylenol o ibuprofeno; Regreso a la vladimir de emergencias. LATOSHA VEGA MD Jan 01, 2019 15:55
--- NOTE | 2019-01-01 19:19 | DS ---
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 Freire, medical oncology Dr. Arnold, radiation oncology Dr. Johnson, gastroenterology Procedures Colonoscopy Hx of Present Illness Patient is a female with no significant past medical history who presents to [facility] as a transfer from outside facility. Patient went to outside facility ED after experiencing what she thought was hemorrhoidal bleeding this morning. Patient states that for the past 7 months she has been spent experiencing on and off rectal bleeding that came and went an d was sometimes a little bit and sometimes a lot. Patient states that she went to the ED today as she began to notice that she has been losing weight over the past few months approximately 30 pounds in the past 6 months, and that the bleeding was fairly heavy this morning, approximately a quarter of a cup that has since ceased. Currently patient has no complaint of rectal bleeding. Patient states that she has very mild pain in the right lower quadrant other than that the only real pain she experiences is when she tries to defecate. Patient denies any chest pain, shortness of breath, nausea, vomiting, headache, neck pain, leg pain. Hospital Course The patient did have mild rectal bleeding while hospitalized, required one unit pRBCs, ceased by the time of discharge. Colonoscopy was done showing a rectal mass consistent with carcinoma. Staging CT confirmed numerous liver mets. The patient was seen by medical oncology and radiation oncology. Plan for outpatient pelvic radiation and FOLFOX or FOLFIRI. Home Meds No Active Prescriptions or Reported Meds Follow-up Plan 1. For pain, take ibuprofen or acetaminophen as needed. 2. See Dr. Arnold as scheduled for radiation therapy. 3. See Dr. Archie Freire as scheduled for chemotherapy. (Office number: ) 4. For worsening rectal bleeding or pain uncontrolled by tylenol or ibuprofen; return to the emergency room. 1. Para el dolor, tome ibuprofeno o acetaminofeno segn sea necesario. 2. Angi al Dr. Arnold segn lo programado para la radioterapia. 3. Consulte a la Dra. Archie Freire segn lo programado para la quimioterapia. (Nmero de la oficina: ) 4. Para empeorar el sangrado rectal o el dolor no controlado por tylenol o ibuprofeno; Regreso a la vladimir de emergencias. Primary Care Provider [facility] Time spent on discharge: > 30 minutes Pending Labs Laboratory Tests Test 01/01/19 04:45 01/01/19 07:25 White Blood Count 7.5 10^3/ul (4.8-10.8) Red Blood Count 4.14 10^6/ul (4.20-5.40) Hemoglobin 9.1 g/dl (12.0-16.0) Hematocrit 29.7 % (37.0-47.0) Mean Corpuscular Volume 71.7 fl (82.0-101.0) Mean Corpuscular Hemoglobin 22.0 pg (29.0-33.0) Mean Corpuscular 30.6 g/dl (32.0-37.0) Hemoglobin Concent Red Cell Distribution Width 20.1 % (11.5-14.5) Platelet Count 347 10^3/UL (140-415) Mean Platelet Volume 9.5 fl (7.4-10.4) Immature Granulocytes % 0.100 % (0.001-0.429) Neutrophils % 65.2 % (39.0-77.0) Lymphocytes % 22.8 % (15.0-51.0) Monocytes % 7.4 % (0.0-11.0) Eosinophils % 4.0 % (0.0-7.0) Basophils % 0.5 % (0.0-2.0) Nucleated Red Blood Cells % 0.0 /100WBC (0.0-0.0) Immature Granulocytes # 0.010 10^3/ul (0.0-0.031) Neutrophils # 4.9 10^3/ul (1.6-7.5) Lymphocytes # 1.7 10^3/ul (0.8-2.9) Monocytes # 0.6 10^3/ul (0.3-0.9) Eosinophils # 0.3 10^3/ul (0.0-0.5) Basophils # 0.0 10^3/ul (0.0-0.1) Nucleated Red Blood Cells # 0.0 10^3/ul (0.0-0.0) Sodium Level 138 mmol/L (135-144) Potassium Level 4.2 mmol/L (3.5-5.1) Chloride Level 107 mmol/L (97-110) Carbon Dioxide Level 27 mmol/L (21-31) Anion Gap 4 (5-13) Blood Urea Nitrogen 7 mg/dl (7-20) Creatinine 0.46 mg/dl (0.44-1.00) Est Glomerular Filtrat Rate mL/min > 60 mL/min (>60) Glucose Level 99 mg/dl (70-220) Calcium Level 9.0 mg/dl (8.4-10.2) Phosphorus Level 4.4 mg/dl (2.5-4.9) Magnesium Level 2.1 mg/dl (1.7-2.5) Lab Scanned Report BLOOD TRANSFUSION LATOSHA VEGA MD Jan 01, 2019 19:19
--- NOTE | 2019-01-02 15:02 | CONS ---
Assessment/Plan Assessment/Plan Hospital Course (Demo Recall) pleasant but unfortunate 43 yo with no PMH with BRBPR and weight loss, had CT scan showing rectal lesion and liver mets. Colonoscopy shows large rectal mass -path c/w adeno ca of rectum -check CEA -CT chest: 9 mm nodule in the anterior right upper lobe, which may reflect metastatic disease. Calcified granuloma in the posterior right lower lobe. Multiple large hepatic metastasis. -Rad Onc has seen pt, Dr Juarez plans on starting XRT in hospital. given extent of disease will administer either FOLFOX or XELOX concomitantly--given that she has stabilized she is to be discharged to start tx as outpt. we are working on checking with her insurance and getting auth -we discussed in brief the chemotherapy schedule and side effects expected including but not limited to nausea, vomiting, myelosuppression, hair loss, neuropathy. once pathology is finalized will order chemo -MRI abdo c/w mets -KRAS and MSI testing #anemia iron def anemia start ferrlecit 125 mg daily x 3 dose Consultation Date/Type/Reason Admit Date/Time Dec 27, 2018 at 16:42 Initial Consult Date Date/Time of Note DATE: 01/01/19 TIME: 14:59 Exam/Review of Systems Exam Vitals Vital Signs Date Temp Pulse Resp B/P (MAP) Pulse Ox O2 O2 Flow FiO2 Time Delivery Rate 01/01/19 89 12 110/57 100 Room Air 13:58 (74) 01/01/19 98.6 13:12 Intake and Output 01/01/19 01/01/19 01/02/19 1515:00 23:00 07:00 IntakeIntake Total 150 ml BalanceBalance 150 ml Results Result Diagram: 01/01/19 0445 01/01/19 0445 KAMALJIT HOLLINS Jan 02, 2019 15:02
== END 2019-01-01 18:11 | disposition home or self-care (01) | DRG 375 ==
LOC: TEL 16:42 → MS1 12-31 10:50
PROVIDERS: ADMIT Internal Medicine; ATTEND Internal Medicine
PROC: 30233N1 Transfusion of Nonautologous Red Blood Cells into Peripheral Vein, Percutaneous Approach (ICD-10-PCS; 2018-12-28)
PROC: 0DBP8ZX Excision of Rectum, Via Natural or Artificial Opening Endoscopic, Diagnostic (ICD-10-PCS; principal; 2018-12-28 12:30)
PROC: 02HV33Z Insertion of Infusion Device into Superior Vena Cava, Percutaneous Approach (ICD-10-PCS; 2019-01-01)
PROC: B548ZZA Ultrasonography of Superior Vena Cava, Guidance (ICD-10-PCS; 2019-01-01)
PROC: 0JH63XZ Insertion of Tunneled Vascular Access Device into Chest Subcutaneous Tissue and Fascia, Percutaneous Approach (ICD-10-PCS; 2019-01-01)
PROC: 05HM33Z Insertion of Infusion Device into Right Internal Jugular Vein, Percutaneous Approach (ICD-10-PCS; 2019-01-01)
PROC: B5131ZA Fluoroscopy of Right Jugular Veins using Low Osmolar Contrast, Guidance (ICD-10-PCS; 2019-01-01)
DX: C18.9 Malignant neoplasm of colon, unspecified (principal); K62.5 Hemorrhage of anus and rectum; D62 Acute posthemorrhagic anemia; C78.7 Secondary malignant neoplasm of liver and intrahepatic bile duct; R63.4 Abnormal weight loss; Z68.27 Body mass index [BMI] 27.0-27.9, adult
CPT/HCPCS: 36430; 36561; 71260; 74183; 76942; 80048; 80053; 80061; 82378; 82728; 83036; 83540; 83735; 84100; 84443; 85014; 85018; 85025; 85049; 85610; 85670; 85730; 86850; 86900; 86901; 86920; 88305; C1788; C9113; J0690; J1644; J2250; J2916; J3010; J7030; P9016; Q9967

== ENCOUNTER 2019-01-02 23:43 | Emergency (ER) | payer OTHER ==
[~2019-01-02] VITALS: Ht 144.8 cm; Wt 51.5 kg
[2019-01-02 23:45] VITALS: Ht 144.8 cm; Wt 51.5 kg
--- NOTE | 2019-01-03 01:53 | ERD ---
ER Documentation Chief Complaint Chief Complaint L ARM PAIN/ SWELLING S/P REMOVAL OF IV YESTERDAY. DC'D FROM [address] [place] [address] This is a very pleasant 43-year-old female with left arm pain and swelling status post will IV yesterday. Patient was admitted to the hospital for multiple days. Denies fevers chills. Denies any other current complaints. ROS All systems reviewed and are negative except as per history of present illness. Medications Home Meds No Active Prescriptions or Reported Meds Allergies Allergies: Coded Allergies: No Known Allergy (Unverified , 05/18/18) PMhx/Soc History of Surgery: Yes (VAGINAL SURGERY) Anesthesia Reaction: No Hx Neurological Disorder: No Hx Respiratory Disorders: No Hx Cardiac Disorders: No Hx Psychiatric Problems: No Hx Miscellaneous Medical Probl: No Hx Alcohol Use: No Hx Substance Use: No Hx Tobacco Use: No Smoking Status: Never smoker Physical Exam Vitals Vital Signs Date Temp Pulse Resp B/P (MAP) Pulse Ox O2 O2 Flow FiO2 Time Delivery Rate 01/02/19 98.7 80 20 124/69 98 23:45 (87) Physical Exam Const: No acute distress Head: Atraumatic Eyes: Normal Conjunctiva ENT: Normal External Ears, Nose and Mouth. Neck: Full range of motion. No meningismus. Resp: Clear to auscultation bilaterally Cardio: Regular rate and rhythm, no murmurs Abd: Soft, non tender, non distended. Normal bowel sounds Skin: No petechiae or rashes Back: No midline or flank tenderness Ext: No cyanosis, or edema Neur: Awake and alert Psych: Normal Mood and Affect Procedures/MDM Medical decision making: Patient has what looks to be superficial phlebitis. Advised to use warm compresses and Motrin. Follow-up with PCP. Return for worsening symptoms. Departure Diagnosis: Primary Impression: Injury of upper extremity Encounter type: initial encounter Laterality: unspecified laterality Qualified Codes: S49.90XA - Unspecified injury of shoulder and upper arm, unspecified arm, initial encounter Condition: Stable NOEMY WARREN Jan 03, 2019 01:53
[2019-01-03] MEDS ORDERED: HYDR-3980 PO (02:01)
[2019-01-03 02:09] VITALS: BP 122/78; PULSE 84; RESP 14
== END 2019-01-03 02:13 | disposition home or self-care (01) ==
LOC: E/R 23:43
DX: S49.92XA Unspecified injury of left shoulder and upper arm, initial encounter (principal); X58.XXXA Exposure to other specified factors, initial encounter; Y92.9 Unspecified place or not applicable
CPT/HCPCS: 93005; 93971; Z7502